=== PATIENT | female | born 1995 | race African-American/Black ===

== ENCOUNTER 2024-08-10 23:23 | Emergency (ER) | payer SELFPAY ==
[2024-08-10 23:28] VITALS: BP 124/83
[2024-08-11 01:12] VITALS: BMI 38.4
[2024-08-11 01:24] LABS: HCG, Urine Qualitative Screen Negative
[2024-08-11 01:27] LABS: Urine Albumin 2+ (Neg - Trace); Urine Bilirubin Negative (Negative); Urine Character Clear (Clear); Urine Color Amber; Urine Glucose Negative (Negative); Urine Ketone Negative (Negative); Urine Leukocyte Negative (Negative); Urine Nitrite Negative (Negative); Urine Occult Blood 1+ (Negative); Urine Specific Gravity 1.025 (<1.030); Urine Urobilinogen 1+ (Neg - 1+)
[2024-08-11 01:45] LABS: Urine Squamous Cell >30 /LPF (Few)
[2024-08-11 01:46] LABS: Urine Mucus Moderate
[2024-08-11 01:47] LABS: Urine Calcium Oxalate Crystals Seen
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
[2024-08-11 01:49] LABS: Urine Bacteria Few (Negative); Urine White Cell 0-2 /HPF (0-5)
[2024-08-11] MEDS: TYLENOL 1000 MG PO (03:02)
[2024-08-11] MEDS: XANAX 0.5 MG PO (03:03)
[2024-08-11 04:01] LABS: Amphetamines Negative (Negative); Barbiturates Negative (Negative); Benzodiazepines Positive (Negative); Buprenorphine Negative (Negative); Cocaine Negative (Negative); Marijuana Positive (Negative); Methadone Negative (Negative); Methamphetamines Negative (Negative); Opiates Negative (Negative); Phencyclidine Negative (Negative); Tricyclic Antidepressants Negative (Negative)
[2024-08-11 04:14] LABS: Fentanyl, Urine Negative (Negative)
[2024-08-11] MEDS: FLAGYL 2000 MG PO (06:25)
[2024-08-11] MEDS: ZITHROMAX 1000 MG PO (06:26)
[2024-08-11] MEDS: ISENTRESS 400 MG PO (06:26)
[2024-08-11] MEDS: TRUVADA TABLET 1 TABLET PO (06:27)
[2024-08-11] MEDS: ZOFRAN ODT (ORALLY DISINTEGRATING) 4 MG PO (06:27)
[2024-08-11 06:32] LABS: ALT (SGPT) < 10 U/L (0-35); AST (SGOT) 16 U/L (14-36); Albumin 3.8 g/dl (3.5-5.0); Alkaline Phosphatase 73 U/L (38-126); Blood Urea Nitrogen 12 mg/dl (7-17); Calcium 8.9 mg/dl (8.4-10.2); Carbon Dioxide 22 mmol/L (22-30); Chloride 110 mmol/L (98-107); Estimated Creatinine Clearance 119 ml/min; Glucose 118 mg/dl (70-99); Potassium 3.9 mmol/L (3.5-5.1); Sodium 137 mmol/L (135-145); Total Bilirubin 0.2 mg/dl (0.2-1.3); Total Protein 6.3 g/dl (6.3-8.2); eGFR > 60.00
[2024-08-11 06:35] VITALS: BP 116/73
[2024-08-11] MEDS: ROCEPHIN 1.4286 MG IM (07:09)
[2024-08-11 09:19] LABS: HIV Combo Negative (Negative)
== END 2024-08-11 09:21 | disposition home or self-care (01) ==
LOC: EMR 23:23
PROVIDERS: Emergency Medicine; EMERGENCY PHYSICIAN Emergency Medicine
DX: T76.21XA Adult sexual abuse, suspected, initial encounter (principal); X58.XXXA Exposure to other specified factors, initial encounter; R10.2 Pelvic and perineal pain
CPT/HCPCS: 99284; 96372; 80053; 80306; 80307; 81003; 81015; 81025; 87389